=== PATIENT | male | born 1960 | race Caucasian/White ===

== ENCOUNTER 2017-12-10 17:53 | Emergency (ER) | payer OTHER ==
--- NOTE | 2017-12-10 18:19 | ED Physician Documentation ---
General Adult - HISTORIAN Historian: patient - HPI Stated Complaint: shortness of breath x 6 weeks Chief Complaint: Dyspnea Onset: other (6 weeks ) Timing: still present Severity: mild Further Comments: yes (He states he started over 6 weeks ago with what he felt was a cold and this is not getting better. He states he has HTN and he stopped all meds about a year ago b/c he felt he was on too many meds. Denies any other complaints. Shortness of breath increased with laying flat . No chest pain at this time .) - ROS CONST: no problems EYES/ENT: none CVS/RESP: shortness of breath, cough (non productive ). 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 ) Surgeries/Procedures: none Immunizations: UTD Allergies/Adverse Reactions: Allergies Allergy/AdvReac Type Severity Reaction Status Date / Time rofecoxib [From Vioxx] Allergy Intermediate Hives Verified 12/10/17 19:08 tramadol Allergy Intermediate Hives Verified 12/10/17 19:08 Home Medications: Ambulatory Orders Medication Instructions Recorded NK [NK] 12/10/17 - SOCIAL HX Smoking History: non-smoker Alcohol Use: none Drug Use: none - FAMILY HX Family History: No - REVIEWED ASSESSMENTS Nursing Assessment Reviewed: Yes Vitals Reviewed: Yes Progress - Progress Progress: 1850: resting quietly on bed. He denies any chest pain. Diagnosis explained and understood. He does note that he has a PCP appt in the future. He understands the need to take meds daily. DG ED Results Lab/Radiology - Radiology Radiology Impressions: Chest, 2 view History: SOA X2 DAYS, WORSENING, NON SMOKER Findings: The heart size is normal. Bronchial wall thickening is present with coursing of the bronchovascular markings and mild right basal infiltrate. There is no pleural effusion or pneumothorax identified. The osseous structures are normal. Impression: 1. Bronchitis and mild right basalar infiltrate Electronically signed on Dec 10, 2017 6:33:04 PM CDT by: Khari Ferreira CT chest with contrast PE protocol. History: Shortness of breath. Technique: Transaxial computed tomography images of the chest were obtained following the uneventful administration contrast according to CT PE protocol. Coronal and sagittal 3D mip images were obtained as part of the examination. Findings: The heart size is normal. No evidence of pulmonary embolism. The aorta is normal in appearance. There is mild bronchial wall thickening the lower lobes present with patchy nodular infiltrate present within the lung bases. Small bilateral pleural effusions are noted. Calcified granulomas present in the left lower lobe. The gallbladder is absent. Impression: 1. No evidence of pulmonary embolism. 2. Bronchial wall thickening suggesting bronchitis with mild patchy nodular infiltrate present in the bilateral lower lobes suggesting associated bronchopneumonia. 3. Small bilateral pleural effusions. Electronically signed on Dec 10, 2017 7:47:03 PM CDT by: Khari Ferreira - Orders Orders: ED Orders Category Date Time Status Continuous EKG monitoring Q30M Care 12/10/17 18:14 Active Continuous Pulse Oximetry Q30M Care 12/10/17 18:[address] IV Lock 1T Care 12/10/17 18:14 Active CHEST 2VIEW [RAD] Stat Exams 12/10/17 Ordered CBC/PLATELET/DIFF Routine Lab 12/10/17 18:14 Ordered CMP Routine Lab 12/10/17 18:14 Ordered CREATINE KINASE Routine Lab 12/10/17 18:14 Ordered D DIMER Stat Lab 12/10/17 Ordered TROPONIN I (cTnI) Stat Lab 12/10/17 Ordered Oxygen Daily Oxygen 12/10/17 18:15 Ordered EKG WITH COMPARISON Stat Ther 12/10/17 18:14 Ordered General Adult Physical Exam - PHYSICAL EXAM GENERAL APPEARANCE: no distress EENT: eye inspection normal, [place] NECK: normal inspection RESPIRATORY: no resp distress, chest non-tender, breath sounds normal CVS: reg rate & rhythm, heart sounds normal, equal pulses, no murmur ABDOMEN: soft, normal bowel sounds SKIN: warm/dry, normal color, diaphoresis EXTREMITIES: non-tender, normal range of motion, no evidence of injury, no edema NEURO: oriented X3, CN's nml as tested, motor nml, sensation nml, mood/affect nml Discharge Clincal Impression: Pneumonia Qualifiers: Pneumonia type: due to unspecified organism Laterality: right Lung location: lower lobe of lung Qualified Code(s): J18.1 - Lobar pneumonia, unspecified organism Referrals: Primary Doctor,No [Primary Care Provider] - 2 Days Additional Instructions: 1. Azithromycin (zpack) as directed 2. Medrol dose pack 4 mg as directed 3. Hyzaar 50/12.5 mg take 1 by mouth daily (15 tabs) 4. Phenytoin EX 90 mg take 1 by mouth daily (15 tabs) 5. Follow up with PCP 6. Return to ER for any concerns Comments: Spoke with Dr Mann Swanson for collaboration. Will treat with oral meds and send home with follow up at ER or PCP DG Condition: Stable Disposition: 01 HOME, SELF-CARE Decision to Admit: NO Date of Decison to Admit: 12/10/17 Decision Time: 20:20
[2017-12-10] MEDS ORDERED: methylPREDNISolone SOD SUCC 125 MG/2 ML VIAL IVP ONE (18:39)
[2017-12-10 18:45] LABS: BASOPHILS % 0.4 (0.0-1.5); EOSINOPHILS % 0.9 % (0.0-6.8); MEAN CORPUSCULAR HEMOGLOBIN 28.4 pg (28.0-34.0); MEAN CORPUSCULAR VOLUME 87.4 fl (80.0-100.0); MONOCYTES % 5.2 % (0.0-11.0); NEUTROPHILS # 6.6 # k/uL (1.4-7.7)
[2017-12-10] MEDS ORDERED: hydrALAZINE HCL 20 MG/1 ML IVP ONE (18:45)
[2017-12-10 18:52] LABS: eGFR (African) > 60; eGFR (Non-African) > 60
[2017-12-10] MEDS ORDERED: 0.9 % SODIUM CHLORIDE 1,000 ML IV ONE ×2 (18:59→19:09)
[2017-12-10 20:46] VITALS: BP 184/122
--- NOTE | 2017-12-11 08:35 | Diagnostic Imaging Report ---
FRANCISCA LEONARDO [facility] [address] [facility] [address] [place], [place]. [address] Report Submission Date: Dec 10, 2017 6:33:04 PM CDT Patient Study Name: DINORAH JOHNSTON Date: Dec 10, 2017 6:20:24 PM CDT Modality Type: DX Gender: M Description: CHEST : 64 Institution: [facility] Physician: FRANCISCA LEONARDO Chest, 2 view History: SOA X2 DAYS, WORSENING, NON SMOKER Findings: The heart size is normal. Bronchial wall thickening is present with coursing of the bronchovascular markings and mild right basal infiltrate. There is no pleural effusion or pneumothorax identified. The osseous structures are normal. Impression: 1. Bronchitis and mild right basalar infiltrate Electronically signed on Dec 10, 2017 6:33:04 PM CDT by: Khari SMITH
--- NOTE | 2017-12-11 08:36 | Diagnostic Imaging Report ---
FRANCISCA LEONARDO [facility] [address] [facility] [address] [address] Report Submission Date: Dec 10, 2017 7:47:03 PM CDT Patient Study Name: DINORAH JOHNSTON Date: Dec 10, 2017 7:19:56 PM CDT Modality Type: CT\SR Gender: M Description: CT PE CHEST : 64 Institution: [facility] Physician: FRANCISCA LEONARDO CT chest with contrast PE protocol. History: Shortness of breath. Technique: Transaxial computed tomography images of the chest were obtained following the uneventful administration contrast according to CT PE protocol. Coronal and sagittal 3D mip images were obtained as part of the examination. Findings: The heart size is normal. No evidence of pulmonary embolism. The aorta is normal in appearance. There is mild bronchial wall thickening the lower lobes present with patchy nodular infiltrate present within the lung bases. Small bilateral pleural effusions are noted. Calcified granulomas present in the left lower lobe. The gallbladder is absent. Impression: 1. No evidence of pulmonary embolism. 2. Bronchial wall thickening suggesting bronchitis with mild patchy nodular infiltrate present in the bilateral lower lobes suggesting associated bronchopneumonia. 3. Small bilateral pleural effusions. Electronically signed on Dec 10, 2017 7:47:03 PM CDT by: Khari SMITH
== END 2017-12-10 20:35 | disposition home or self-care (01) ==
LOC: ED 17:53
DX: J18.1 Lobar pneumonia, unspecified organism (principal)
CPT/HCPCS: 71046; 71275; 80053; 82550; 84484; 85025; 85379; 93005; 96365; 96375; 99283; J2930; J7030; Q9967; S1016

== ENCOUNTER 2018-02-22 09:38 | Emergency (ER) | payer OTHER ==
[2018-02-22] MEDS ORDERED: IPRATROPIUM/ALBUTEROL SULFATE 3 ML AMPUL.NEB NEB ONE (09:47)
--- NOTE | 2018-02-22 10:03 | ED Physician Documentation ---
General Adult - HISTORIAN Historian: patient - HPI Stated Complaint: SOB Chief Complaint: General Adult Additional Information: Treated for pneumonia in December. Doesn't think he got over it. Has been SOB for two weeks, and much worse the last week. Has not seen anyone for this. Not taking his BP or seizure meds. Ran out and couldn't get appointment. - ROS CONST: recent illness. denies: fever - PAST HX Past History: hypertension Allergies/Adverse Reactions: Allergies Allergy/AdvReac Type Severity Reaction Status Date / Time rofecoxib [From Vioxx] Allergy Intermediate Hives Verified 02/22/18 10:29 tramadol Allergy Intermediate Hives Verified 02/22/18 10:29 Home Medications: Ambulatory Orders Medication Instructions Recorded Losartan/Hydrochlorothiazide 1 each PO DAILY #30 tablet 02/22/18 [Hyzaar 50-12.5 Tablet] Phenytoin Sodium Extended 100 mg PO DAILY #30 capsule 02/22/18 [Dilantin] - SOCIAL HX Smoking History: non-smoker Alcohol Use: none Drug Use: none - FAMILY HX Family History: No - VITAL SIGNS Vital Signs: Vital Signs Temp Pulse Resp BP Pulse Ox 184/122 12/10/17 20:35 - REVIEWED ASSESSMENTS Nursing Assessment Reviewed: Yes Vitals Reviewed: Yes Progress - Progress Progress: admits to black stools - questioned as he is anemic. 2 GM loss since end of December. Patient Study Name: DINORAH JOHNSTON Date: Feb 22, 2018 10:06:46 AM CDT Modality Type: DX Gender: M Description: CHEST : 64 Institution: [facility] Physician: KIANA YANEZ - Examination: PA and lateral chest. History: Evaluate lung lyons. SHORTNESS OF AIR (Hx) Comparison exam: 10 December 2017 Findings: PA lateral chest demonstrate a normal cardiac and mediastinal silhouette. No focal infiltrate. No blunting of the costophrenic margins. Osseous structures are appropriate for age. Impression: No acute pulmonary process. Electronically signed on Feb 22, 2018 10:37:06 AM CDT by: Harlan Rojas Labs remarkable for anemia, e'lyte irregularities, glucose 175. Iron studies and HgbA1C drawn. Has appt with Dr. Parker on 03/01. Smoked 2 PPD for 10 years. Suspect he has COPD. EKG w/o ischemia. Serial Trop I's negative. ED Results Lab/Radiology - Orders Orders: ED Orders Category Date Time Status CHEST 2VIEW [RAD] Stat Exams 02/22/18 Ordered CBC/PLATELET/DIFF Routine Lab 02/22/18 10:00 Received CMP Routine Lab 02/22/18 10:00 Received TROPONIN I (cTnI) Stat Lab 02/22/18 10:00 Received URINALYSIS Routine Lab 02/22/18 Ordered Ipratropium/Albuterol Sulfate [Duoneb] Med 02/22/18 09:47 Discontinued 3 ml NEB NOW ONE EKG WITH COMPARISON Stat Ther 02/22/18 Ordered General Adult Physical Exam - PHYSICAL EXAM GENERAL APPEARANCE: moderate distress EENT: eye inspection normal, ENT inspection normal, pharynx normal (Mallampati 2 ) NECK: normal inspection, supple RESPIRATORY: wheezes (moving very little air. pulse ox 99% on ambient air, prolonged expiratory phase) CVS: heart sounds normal ABDOMEN: soft, normal bowel sounds BACK: normal inspection, no CVA tenderness, other (no vertebral tenderness) SKIN: warm/dry, normal color EXTREMITIES: no evidence of injury NEURO: motor nml, sensation nml Discharge Clincal Impression: Wheezing Prescriptions: Losartan/Hydrochlorothiazide [Hyzaar 50-12.5 Tablet] 1 each PO DAILY #30 tablet Phenytoin Sodium Extended [Dilantin] 100 mg PO DAILY #30 capsule Referrals: Primary Doctor,No [Primary Care Provider] - 2 Days Condition: Fair Disposition: 01 HOME, SELF-CARE Decision to Admit: NO Decision Time: 12:25
[2018-02-22 10:04] LABS: BASOPHILS % 0.3 (0.0-1.5); EOSINOPHILS % 0.7 % (0.0-6.8); MEAN CORPUSCULAR HEMOGLOBIN 25.2 pg (28.0-34.0); MEAN CORPUSCULAR VOLUME 83.1 fl (80.0-100.0); MONOCYTES % 6.2 % (0.0-11.0); NEUTROPHILS # 5.6 # k/uL (1.4-7.7)
[2018-02-22 10:21] LABS: eGFR (African) > 60; eGFR (Non-African) > 60
[2018-02-22] MEDS ORDERED: BUDESONIDE 0.5MG/2ML AMPUL.NEB NEB ONE (10:21)
[2018-02-22] MEDS ORDERED: BUDESONIDE 0.5MG/2ML AMPUL.NEB NEB SCH (11:00)
[2018-02-22] MEDS ORDERED: methylPREDNISolone SOD SUCC 40 MG/ML VIAL IVP ONE (11:06)
[2018-02-22] MEDS ORDERED: cefTRIAXone SODIUM 1 GM in 0.9 % SODIUM CHLORIDE 50 ML IV ONE (11:06)
[2018-02-22] MEDS ORDERED: 0.9 % SODIUM CHLORIDE 100 ML IV ONE (11:22)
[2018-02-22] MEDS ORDERED: cefTRIAXone SODIUM 1 GM VIAL ONE (11:22)
--- NOTE | 2018-02-22 11:41 | Diagnostic Imaging Report ---
KIANA YANEZ [facility] [address] [facility] [address] [address] Report Submission Date: Feb 22, 2018 10:37:06 AM CDT Patient Study Name: DINORAH JOHNSTON Date: Feb 22, 2018 10:06:46 AM CDT Modality Type: DX Gender: M Description: CHEST : 64 Institution: [facility] Physician: KIANA YANEZ Examination: PA and lateral chest. History: Evaluate lung lyons. SHORTNESS OF AIR (Hx) Comparison exam: 10 December 2017 Findings: PA lateral chest demonstrate a normal cardiac and mediastinal silhouette. No focal infiltrate. No blunting of the costophrenic margins. Osseous structures are appropriate for age. Impression: No acute pulmonary process. Electronically signed on Feb 22, 2018 10:37:06 AM CDT by: Harlan SMITH
[2018-02-22 12:53] VITALS: BP 167/97
[2018-02-22 12:53] LABS: APPEARANCE,URINE CLEAR (CLEAR); COLOR,URINE YELLOW (YELLOW); OCCULT BLOOD,URINE TRACE-INTACT (NEGATIVE); PH URINE 7.5 (5.0 - 8.0); UROBILINOGEN URINE 0.2 Eu (0.2-1.0)
[2018-02-22 17:21] LABS: IRON SERUM 18 ug/dL (59-158); SERUM IRON 18 ug/dL (59-158)
== END 2018-02-22 12:51 | disposition home or self-care (01) ==
LOC: ED 09:38
DX: R06.2 Wheezing (principal)
CPT/HCPCS: 71046; 80053; 81002; 83036; 83540; 83550; 84484; 85025; 87040; 93005; 94640; 94760; J0696; J2920; J7626; 96365; 96375; 99283; J1030; S1016

== ENCOUNTER 2018-05-08 07:26 | Emergency (ER) | payer OTHER ==
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
[2018-05-08] MEDS ORDERED: LOSARTAN POTASSIUM 50 MG TABLET PO ONE (07:58)
[2018-05-08] MEDS ORDERED: HYDROCHLOROTHIAZIDE 25 MG TABLET PO ONE (07:59)
[2018-05-08] MEDS ORDERED: ASPIRIN 81 MG CHEW TAB PO ONE (08:03)
[2018-05-08] MEDS ORDERED: PHARMACY KEY 1 EACH EACH MC ONE (08:17)
[2018-05-08 08:24] LABS: BASOPHILS % 0.1 (0.0-1.5); EOSINOPHILS % 0.1 % (0.0-6.8); MEAN CORPUSCULAR HEMOGLOBIN 24.6 pg (28.0-34.0); MONOCYTES % 4.7 % (0.0-11.0); NEUTROPHILS # 11.4 # k/uL (1.4-7.7)
[2018-05-08 09:02] LABS: eGFR (African) > 60; eGFR (Non-African) > 60
[2018-05-08] MEDS ORDERED: FUROSEMIDE 40 MG/4 ML VIAL ONE (09:22)
[2018-05-08] MEDS ORDERED: FUROSEMIDE 40 MG/4 ML VIAL IVP ONE (09:22)
[2018-05-08] MEDS ORDERED: POTASSIUM CHLORIDE 20 MEQ TABLET.ER PO ONE (09:34)
--- NOTE | 2018-05-08 09:41 | Diagnostic Imaging Report ---
[facility] [address] [facility] [address] Report Submission Date: May 08, 2018 9:11:03 AM CDT Patient Study Name: DINORAH JOHNSTON Date: May 08, 2018 8:37:35 AM CDT Modality Type: DX Gender: M Description: CHEST : 64 Institution: [facility] Physician: SHON TOVAR Single frontal view of the chest History: T STATES SOB AND HYPERTENSION TODAY. NONSMOKER. NO KNOWN HEART/LUNG CONDITIONS. Hx OF BRONCHITIS. (Hx) / ITS.REASON sob Note time : 05/08/2018 9:52:59 AM User : Lorri Marshall PT STATES SOB AND HYPERTENSION TODAY. NONSMOKER. NO KNOWN HEART/LUNG CONDITIONS. Hx OF BRONCHITIS. Comparison: None available at the time of dictation. Mild cardiomegaly. Diffuse reticulonodular interstitial prominence is present. No pleural effusion or pneumothorax. Mildly elevated right hemidiaphragm. No obvious focal consolidation. No acute osseous pathology Impression: 1. No focal consolidation or pleural effusion. 2. Diffuse interstitial prominence may be related to pulmonary vascular congestion Electronically signed on May 08, 2018 9:11:03 AM CDT by: Sonja SMITH
[2018-05-08 10:36] VITALS: BP 162/94
== END 2018-05-08 10:09 | disposition home or self-care (01) ==
LOC: ED 07:26
DX: R73.9 Hyperglycemia, unspecified (principal); I10 Essential (primary) hypertension; R51 Headache; R79.89 Other specified abnormal findings of blood chemistry
CPT/HCPCS: 71045; 80053; 82550; 82553; 83880; 84484; 85025; 93005; A9270; J1940; 96374; 99284; S1016